=== PATIENT | male | born 1975 | race African-American/Black ===

== ENCOUNTER 2016-08-28 17:47 | Emergency (ER) | payer SELFPAY ==
[~2016-08-28 17:47] MED LIST: Iopamidol 370 76% 100 ML VIAL ONE
[2016-08-28] MEDS ORDERED: Nitroglycerin 0.4 MG TAB (25 Tab Bottle) ONE (18:25)
[2016-08-28 18:43] LABS: #Basophils 0.1 thou/uL (0.0-0.2); #Eosinphils 0.1 thou/uL (0.0-0.7); #Lymphocytes 1.9 thou/uL (1.20-3.40); #Monocytes 0.7 thou/uL (0.11-0.59); #Neutrophils 3.8 thou/uL (1.40-6.50); %Basophils 1.9 % (0.0-1.0); %Eosinophils 1.6 % (0.0-10.0); %Lymphocytes 28.6 % (21.0-51.0); %Monocytes 10.9 % (0.0-10.0); Hemoglobin 14.4 g/dL (14.0-18.0); Mean Corpuscular HGB CONC 31.3 g/dL (32.0-36.0); Mean Corpuscular Hemoglobin 28.5 pg (27.0-31.0); Mean Corpuscular Volume 91.2 fl (80.0-94.0); Mean Platelet Volume 7.9 fL (7.4-10.4); Platelet Count 217 thou/uL (130-400); Red Blood Cell (RBC) Count 5.04 mill/uL (4.70-6.10); White Blood Cell (WBC) Count 6.7 thou/uL (4.8-10.8)
[2016-08-28 18:55] LABS: ALT (SGPT) 16 U/L (0-55); AST (SGOT) 20 U/L (5-34); Albumin 4.1 g/dL (3.5-5.0); Alkaline Phosphatase 77 U/L (40-150); Anion Gap 14 mmol/L (10-20); BUN (Urea Nitrogen) 13 mg/dL (8.9-20.6); Calc. Creatinine Clearance 0 mL/min (70-130); Calcium 8.5 mg/dL (7.8-10.44); Carbon Dioxide 23 mmol/L (22-29); Chloride 105 mmol/L (98-107); Estimated GFR-MDRD Greater than 90; Globulin 2.7 g/dL (2.4-3.5); Glucose 93 mg/dL (70-105); Lipase 27 U/L (8-78); Potassium 3.5 mmol/L (3.5-5.1); Protein, Total 6.8 g/dL (6.0-8.3); Sodium 138 mmol/L (136-145)
[2016-08-28 19:01] LABS: Troponin I Less than 0.010 ng/mL (< 0.028)
--- NOTE | 2016-08-28 19:56 | RAD ---
PORTABLE AP CHEST X-RAY 08/28/16 HISTORY: Left sided chest pain mainly when lifting arm. FINDINGS: Comparison is made with prior study on 07/02/14. The cardiac silhouette and pulmonary vasculature are within normal limits. Calcified granuloma in th e right lung apex and right mid lung zone are again seen. The lungs are otherwise clear. There has b een no interval change from the prior exam. IMPRESSION: No acute cardiopulmonary process. POS: [facility]
--- NOTE | 2016-08-28 20:34 | CT ---
CT ANGIOGRAM THORAX WITH IV CONTRAST AND 3D RECONSTRUCTIONS 08/28/16 HISTORY: Left sided chest pain and dizziness. Symptoms started two days ago. Elevated D-dimer. FINDINGS: No filling defects are seen in the pulmonary arteries to suggest a pulmonary embolus. The thoracic a tomas is normal in caliber without evidence of an aortic dissection. There is an approximately 5 mm noncalcified pulmonary nodule in the right lower lobe. Stable when co mpared to the prior study in 2013. There is a tiny less than 4 mm nodule seen at the medial aspect o f the right lower lobe. No additional noncalcified pulmonary nodules seen in the lungs bilaterally. A few calcified granulomata are seen on the right. There is no pleural effusion seen. There is no ev idence of lymphadenopathy. Calcified granuloma is seen in the spleen. The remainder of the visualized upper abdomen has a pasquale l CT appearance with stable thickening of each adrenal gland. IMPRESSION: 1. No CT evidence of pulmonary embolus. 2. Thoracic aorta is normal in caliber without evidence of an aortic dissection. 3. Stable, approximately 5 mm pulmonary nodule in the right lower lobe. 4. Subcentimeter too small to characterize hypodense lesion superior pole left kidney stable fr om the prior study in 2013. 5. Small hiatal hernia. POS: [facility]
[2016-08-28] MEDS ORDERED: Ketorolac Tromethamine 30 MG/ML VIAL ONE (20:36)
== END 2016-08-28 20:45 | disposition home or self-care (01) ==
LOC: NAV ERS 17:47
DX: R07.89 Other chest pain (principal); I10 Essential (primary) hypertension; F17.210 Nicotine dependence, cigarettes, uncomplicated
CPT/HCPCS: 71010; 71275; 80053; 82553; 83690; 83880; 84484; 85025; 85379; 93005; 96374; J1885

== ENCOUNTER 2016-09-17 18:38 | Emergency (ER) | payer SELFPAY ==
[2016-09-17] MEDS ORDERED: diphenhydrAMINE HCl 50 MG/ML 1 ML VIAL ONE (19:06)
[2016-09-17] MEDS ORDERED: Famotidine/PF 20 mg/2ml Vial ONE (19:06)
[2016-09-17] MEDS ORDERED: methylPREDNISolone Sod Succ/PF 125 MG/2 ML VIAL ONE (19:06)
== END 2016-09-17 19:55 | disposition home or self-care (01) ==
LOC: NAV ERS 18:38
DX: T78.40XA Allergy, unspecified, initial encounter (principal); F17.210 Nicotine dependence, cigarettes, uncomplicated
CPT/HCPCS: 96374; 96375; J1200; J2930; S0028

== ENCOUNTER 2017-09-24 20:45 | Emergency (ER) | payer SELFPAY ==
[2017-09-24] MEDS ORDERED: Sodium Chloride 0.9% 1,000 ML ONE (21:13)
[2017-09-24] MEDS ORDERED: Ondansetron HCl/PF 4 MG/2 ML Vial ONE (21:13)
[2017-09-24] MEDS ORDERED: Ketorolac Tromethamine 30 MG/ML VIAL ONE (21:13)
[2017-09-24 21:21] LABS: #Basophils 0.1 thou/uL (0.0-0.2); #Eosinphils 0.1 thou/uL (0.0-0.7); #Lymphocytes 2.4 thou/uL (1.20-3.40); #Monocytes 0.6 thou/uL (0.11-0.59); #Neutrophils 3.5 thou/uL (1.40-6.50); %Basophils 1.9 % (0.0-1.0); %Eosinophils 0.9 % (0.0-10.0); %Lymphocytes 35.7 % (21.0-51.0); %Monocytes 9.5 % (0.0-10.0); Hemoglobin 13.7 g/dL (14.0-18.0); Mean Corpuscular HGB CONC 30.9 g/dL (32.0-36.0); Mean Corpuscular Hemoglobin 27.2 pg (27.0-31.0); Mean Corpuscular Volume 88.1 fl (80.0-94.0); Mean Platelet Volume 7.5 fL (7.4-10.4); Platelet Count 202 thou/uL (130-400); RBC Distribution Width 12.5 % (11.5-14.5); Red Blood Cell (RBC) Count 5.02 mill/uL (4.70-6.10); White Blood Cell (WBC) Count 6.7 thou/uL (4.8-10.8)
[2017-09-24 21:36] LABS: ALT (SGPT) 19 U/L (8-55); AST (SGOT) 23 U/L (5-34); Alkaline Phosphatase 70 U/L (40-150); Anion Gap 12 mmol/L (10-20); BUN (Urea Nitrogen) 16 mg/dL (8.9-20.6); Bilirubin, Total 0.5 mg/dL (0.2-1.2); Calc. Creatinine Clearance 0 mL/min (70-130); Calcium 9.1 mg/dL (7.8-10.44); Carbon Dioxide 25 mmol/L (22-29); Chloride 105 mmol/L (98-107); Estimated GFR-MDRD Greater than 90; Globulin 2.7 g/dL (2.4-3.5); Glucose 96 mg/dL (70-105); Lipase 41 U/L (8-78); Potassium 3.6 mmol/L (3.5-5.1); Protein, Total 6.7 g/dL (6.0-8.3); Sodium 138 mmol/L (136-145)
[2017-09-24 22:01] LABS: Bilirubin Negative (Negative); Blood, Urine Negative (Negative); Clarity Clear (Clear); Glucose, Urine (Dipstick) Negative (Negative); Leukocyte Negative (Negative); Nitrite Negative (Negative); Protein, Urine (Dipstick) Negative (Neg-Trace)
--- NOTE | 2017-09-24 22:24 | RAD ---
ONE VIEW CHEST TWO VIEWS ABDOMEN 09/24/17 HISTORY: Abdominal pain, nausea. COMPARISON: None. FINDINGS: ONE VIEW CHEST: Normal cardiac silhouette. The pulmonary vessels and hilum are normal. Costophrenic angles are clear. No consolidation or mass. No pneumothorax or osseous abnormalities. ABDOMEN TWO VIEWS: Nonspecific bowel gas pattern. Scattered fecal material in a nondistended, nondilated colon. No diffe rential air fluid levels. No significant densities in the abdomen or pelvis. Nonspecific, nonenlarged air filled loops of small bowel in the left hemiabdomen. IMPRESSION: 1. No acute cardiopulmonary process. 2. Nonspecific bowel gas pattern. POS: [facility]
== END 2017-09-24 23:03 | disposition home or self-care (01) ==
LOC: NAV ERS 20:45
DX: A08.4 Viral intestinal infection, unspecified (principal); K59.00 Constipation, unspecified; F17.210 Nicotine dependence, cigarettes, uncomplicated; Z79.899 Other long term (current) drug therapy
CPT/HCPCS: 74022; 80053; 81003; 83690; 85025; 96361; 96374; 96375; J1885; J2405; J7050

== ENCOUNTER 2018-04-05 15:00 | Emergency (ER) | payer MEDICAID, SELFPAY | END 2018-04-05 15:43 | disposition home or self-care (01) | LOC: NAV ERS 15:00 | DX: M25.512 Pain in left shoulder (principal); F17.210 Nicotine dependence, cigarettes, uncomplicated; I10 Essential (primary) hypertension; Z79.899 Other long term (current) drug therapy; W55.22XA Struck by cow, initial encounter | CPT/HCPCS: 99284 ==

== ENCOUNTER 2020-12-28 23:47 | Emergency (ER) | payer OTHER ==
[2020-12-28] MEDS ORDERED: Boostrix 0.5 ML (Tdap) VIAL ONE (23:58)
[2020-12-28] MEDS ORDERED: Lidocaine 1% (PF) 30 ML VIAL ONE (23:58)
== END 2020-12-29 00:35 | disposition home or self-care (01) ==
LOC: NAV ERS 23:47
DX: S61.412A Laceration without foreign body of left hand, initial encounter (principal); I10 Essential (primary) hypertension; F17.210 Nicotine dependence, cigarettes, uncomplicated; Z71.6 Tobacco abuse counseling; Z23 Encounter for immunization; W22.8XXA Striking against or struck by other objects, initial encounter
CPT/HCPCS: 12001; 90471; 90715; 99406; J2001

== ENCOUNTER 2021-01-13 19:56 | Emergency (ER) | payer OTHER ==
[2021-01-13] MEDS ORDERED: Cephalexin 250 MG CAP ONE (20:47)
[2021-01-13] MEDS ORDERED: Triple Antibiotic Oint 1 GM Packet ONE (20:51)
== END 2021-01-13 20:50 | disposition home or self-care (01) ==
LOC: NAV ERS 19:56
DX: S61.412D Laceration without foreign body of left hand, subsequent encounter (principal); L03.114 Cellulitis of left upper limb; I10 Essential (primary) hypertension; F17.210 Nicotine dependence, cigarettes, uncomplicated
CPT/HCPCS: 87070; 87077; 87186; 87205; 99283

== ENCOUNTER 2021-01-25 21:46 | Emergency (ER) | payer OTHER, SELFPAY ==
[2021-01-25] MEDS ORDERED: Naproxen 500 MG TAB ONE (22:14)
[2021-01-26 20:21] LABS: SARS-CoV-2 PCR by NAA DETECTED (NotDetected)
== END 2021-01-25 22:19 | disposition home or self-care (01) ==
LOC: NAV ERS 21:46
DX: U07.1 COVID-19 (principal); S39.012A Strain of muscle, fascia and tendon of lower back, initial encounter; I10 Essential (primary) hypertension; F17.210 Nicotine dependence, cigarettes, uncomplicated; X50.1XXA Overexertion from prolonged static or awkward postures, initial encounter; Y92.69 Other specified industrial and construction area as the place of occurrence of the external cause
CPT/HCPCS: 99283; U0003; U0005

== ENCOUNTER 2021-06-24 08:30 | Emergency (ER) | payer SELFPAY ==
[2021-06-24] MEDS ORDERED: Ondansetron PF 4 MG/2 ML Vial ONE (09:22)
[2021-06-24] MEDS ORDERED: Sodium Chloride 0.9% 1,000 ML ONE (09:33)
[2021-06-24 09:45] LABS: #Basophils 0.1 thou/uL (0.0-0.2); #Eosinphils 0.1 thou/uL (0.0-0.7); #Lymphocytes 1.9 thou/uL (1.20-3.40); #Monocytes 0.8 thou/uL (0.11-0.59); #Neutrophils 5.6 thou/uL (1.40-6.50); %Basophils 1.7 % (0.0-1.0); %Eosinophils 1.1 % (0.0-10.0); %Lymphocytes 21.8 % (21.0-51.0); %Monocytes 9.6 % (0.0-10.0); %Neutrophils 65.9 % (42.0-75.0); Hemoglobin 15.3 g/dL (14.0-18.0); Mean Corpuscular HGB CONC 31.2 g/dL (32.0-36.0); Mean Corpuscular Hemoglobin 28.7 pg (27.0-31.0); Mean Platelet Volume 7.8 fL (7.4-10.4); Platelet Count 236 thou/uL (130-400); RBC Distribution Width 12.4 % (11.5-14.5); Red Blood Cell (RBC) Count 5.32 mill/uL (4.70-6.10); White Blood Cell (WBC) Count 8.6 thou/uL (4.8-10.8)
[2021-06-24 09:54] LABS: ALT (SGPT) 21 U/L (8-55); AST (SGOT) 33 U/L (5-34); Albumin 4.2 g/dL (3.5-5.0); Alkaline Phosphatase 83 U/L (40-110); Anion Gap 12 mmol/L (10-20); BUN (Urea Nitrogen) 20 mg/dL (8.9-20.6); Bilirubin, Total 1.5 mg/dL (0.2-1.2); Calc. Creatinine Clearance 0 mL/min (70-130); Calcium 9.1 mg/dL (7.8-10.44); Carbon Dioxide 25 mmol/L (22-29); Chloride 101 mmol/L (98-107); Globulin 3.1 g/dL (2.4-3.5); Glucose 102 mg/dL (70-105); Lipase 28 U/L (8-78); Potassium 3.4 mmol/L (3.5-5.1); Protein, Total 7.3 g/dL (6.0-8.3); Sodium 135 mmol/L (136-145)
[2021-06-24 10:19] LABS: Bilirubin Small (Negative); Clarity Clear (Clear); Glucose, Urine (Dipstick) Negative (Negative); Ketone, Urine Trace mg/dL (Negative); Leukocyte Negative (Negative); Nitrite Negative (Negative); Protein, Urine (Dipstick) Trace mg/dL (Neg-Trace); Specific Gravity, Urine 1.025 (1.005-1.030); Urobilinogen 0.2 mg/dL (Less than 2)
[2021-06-24 10:28] LABS: Blood, Urine Negative (Negative)
== END 2021-06-24 10:47 | disposition home or self-care (01) ==
LOC: NAV ERS 08:30
DX: R19.7 Diarrhea, unspecified (principal); I10 Essential (primary) hypertension; F17.210 Nicotine dependence, cigarettes, uncomplicated
CPT/HCPCS: 80053; 81003; 83690; 85025; 94760; 96374; J2405; J7050

== ENCOUNTER 2021-08-06 19:13 | Emergency (ER) | payer SELFPAY | END 2021-08-06 19:56 | disposition home or self-care (01) | LOC: NAV ERS 19:13 | DX: R10.13 Epigastric pain (principal); I10 Essential (primary) hypertension; F17.210 Nicotine dependence, cigarettes, uncomplicated | CPT/HCPCS: 99282 ==

== ENCOUNTER 2022-08-02 08:21 | Emergency (ER) | payer BC, SELFPAY ==
[2022-08-02 09:26] LABS: Hemoglobin 15.1 g/dL (14.0-18.0); Mean Corpuscular HGB CONC 31.5 g/dL (32.0-36.0); Mean Corpuscular Hemoglobin 29.1 pg (27.0-31.0); Mean Corpuscular Volume 92.6 fl (78.0-98.0); Mean Platelet Volume 7.3 fL (7.4-10.4); Platelet Count 221 10x3/uL (130-400); RBC Distribution Width 12.8 % (11.5-14.5)
[2022-08-02 09:27] LABS: MDiff Complete? YES; Manual Diff?? YES
[2022-08-02 09:34] LABS: Eosinophils 2 % (0-10); Lymphocytes 15 % (21-51); Monocytes 6 % (0-10); Neutrophil 73 % (42-75); Reactive Lymphocytes 4 % (0-10); Stomatocytes SLIGHT = 2-5 cells (100X) (0-1/hpf); Target Cells SLIGHT = 2-5 cells (100X) (0-1/hpf)
[2022-08-02 09:35] LABS: Large Platelets SLIGHT; Platelet Morphology Comment Appears Adequate; Toxic Granulation SLIGHT; Vacuoles SLIGHT
[2022-08-02 09:48] LABS: Anion Gap 13 mmol/L (10-20); BUN (Urea Nitrogen) 13 mg/dL (8.9-20.6); Calc. Creatinine Clearance 0 mL/min (70-130); Calcium 8.9 mg/dL (7.8-10.44); Carbon Dioxide 25 mmol/L (22-29); Chloride 104 mmol/L (98-107); Estimated GFR 112; Glucose 97 mg/dL (70-105); Sodium 138 mmol/L (136-145)
[2022-08-02 10:23] LABS: Bilirubin Negative (Negative); Blood, Urine Negative (Negative); Clarity Clear (Clear); Glucose, Urine (Dipstick) Negative (Negative); Ketone, Urine Negative (Negative); Leukocyte Negative (Negative); Nitrite Negative (Negative); Protein, Urine (Dipstick) Negative (Neg-Trace)
== END 2022-08-02 10:45 | disposition home or self-care (01) ==
LOC: NAV ERS 08:21
DX: R60.0 Localized edema (principal); I10 Essential (primary) hypertension; K21.9 Gastro-esophageal reflux disease without esophagitis; F17.210 Nicotine dependence, cigarettes, uncomplicated; Z79.899 Other long term (current) drug therapy
CPT/HCPCS: 36415; 80048; 81003; 85025; 99283